=== PATIENT | male | born 1950 | race Caucasian/White ===

== ENCOUNTER 2020-07-06 10:06 | Outpatient (REF) | payer MEDICARE, SELFPAY | END 2020-07-06 10:07 | disposition home or self-care (01) | LOC: HO.BBR 10:06 | PROVIDERS: Visit Provider Internal Medicine | DX: E83.110 Hereditary hemochromatosis (principal) | CPT/HCPCS: 36415; 85018; 99195 ==

== ENCOUNTER 2021-01-03 13:55 | Outpatient (REF) | payer MEDICARE, SELFPAY | END 2021-01-03 13:56 | disposition home or self-care (01) | LOC: HO.BBR 13:55 | PROVIDERS: Visit Provider Internal Medicine | DX: Z13.89 Encounter for screening for other disorder (principal) ==

== ENCOUNTER 2021-07-12 11:02 | Outpatient (REF) | payer MEDICARE, SELFPAY | END 2021-07-12 11:03 | disposition home or self-care (01) | LOC: HO.BBR 11:02 | PROVIDERS: PCP Pediatrics; Visit Provider Internal Medicine | DX: Z13.89 Encounter for screening for other disorder (principal) ==

== ENCOUNTER 2021-12-22 10:02 | Outpatient (REF) | payer MEDICARE, SELFPAY | END 2021-12-22 10:03 | disposition home or self-care (01) | LOC: HO.BBR 10:02 | PROVIDERS: Visit Provider Internal Medicine | DX: Z13.89 Encounter for screening for other disorder (principal) ==

== ENCOUNTER 2021-12-29 10:04 | Outpatient (REF) | payer MEDICARE, SELFPAY | END 2021-12-29 10:05 | disposition home or self-care (01) | LOC: HO.BBR 10:04 | PROVIDERS: Visit Provider Internal Medicine | DX: Z13.89 Encounter for screening for other disorder (principal) ==

== ENCOUNTER 2022-06-14 13:50 | Outpatient (REF) | payer MEDICARE, SELFPAY ==
[2022-06-14 14:28] LABS: MANUAL DIFF FLAG NO
[2022-06-14 14:39] LABS: Basophils Absolute Auto 0.1 X10*3/uL (0.0-0.2); Basophils Percent Auto 1.1 % (0-2); Eosinophils Absolute Auto 0.3 X10*3/uL (0.0-0.4); Eosinophils Percent Auto 5.1 % (0-4); Hematocrit 39.8 % (42.0-52.0); Hemoglobin 13.6 g/dl (14.0-18.0); Imm Gran Abs Auto 0.02 X10*3/uL (0.00-0.03); Imm Gran Pct Auto 0.3 % (0.0-0.4); Lymphocytes Absolute Auto 1.1 X10*3/uL (1.2-4.9); Lymphocytes Percent Auto 17.2 % (20-40); Mean Corpuscular HGB Conc 34.2 g/dl (31.0-36.0); Mean Corpuscular Hemoglobin 32.1 pg (27.0-33.0); Mean Corpuscular Volume 93.9 fL (80.0-98.0); Mean Platelet Volume 10.4 fL (9.4-12.4); Monocytes Absolute Auto 0.5 X10*3/uL (0.1-1.2); Monocytes Percent Auto 7.8 % (2-11); Neutrophils Absolute Auto 4.5 x10*3/uL (2.0-8.3); Neutrophils Percent Auto 68.5 % (45-73); Platelet Count 243 X10*3/uL (160-400); Red Blood Count 4.24 X10*6/uL (4.60-5.80); Red Cell Distribution Width 13.2 % (11.0-16.0); White Blood Count 6.5 X10*3/uL (4.8-10.8)
[2022-06-14 15:33] LABS: Alanine Aminotransferase 23 U/L (0-40); Albumin Level 4.2 g/dL (3.5-5.0); Alkaline Phosphatase 59 U/L (39-117); Aspartate Amino Transferase 23 U/L (5-37); Bilirubin Direct 0.2 mg/dL (0.0-0.5); Bilirubin Total 0.7 mg/dL (0.0-1.0); Ferritin 102 ng/mL (20-250); Iron 123 mcg/dL (45-160); Percent Iron Saturation 50 % (15-50); Total Iron Binding Capacity 244 mcg/dL (228-428); Total Protein 6.6 g/dL (6.5-8.0); Unsaturated Iron Binding 121 ug/dL
== END 2022-06-14 13:51 | disposition home or self-care (01) ==
LOC: HO.BBR 13:50
PROVIDERS: Visit Provider Internal Medicine
DX: E83.110 Hereditary hemochromatosis (principal)
CPT/HCPCS: 36415; 80076; 82728; 83540; 85025

== ENCOUNTER 2022-11-16 09:42 | Outpatient (REF) | payer MEDICARE, SELFPAY | END 2022-11-16 09:43 | disposition home or self-care (01) | LOC: HO.BBR 09:42 | PROVIDERS: Visit Provider Internal Medicine | DX: Z13.89 Encounter for screening for other disorder (principal) ==

== ENCOUNTER 2023-05-17 09:57 | Outpatient (REF) | payer MEDICARE, SELFPAY | END 2023-05-17 09:58 | disposition home or self-care (01) | LOC: HO.BBR 09:57 | PROVIDERS: Visit Provider Internal Medicine | DX: Z13.89 Encounter for screening for other disorder (principal) ==

== ENCOUNTER 2023-11-22 10:56 | Outpatient (REF) | payer MEDICARE, SELFPAY | END 2023-11-22 10:57 | disposition home or self-care (01) | LOC: HO.BBR 10:56 | PROVIDERS: PCP Pediatrics; Visit Provider Internal Medicine | DX: Z13.89 Encounter for screening for other disorder (principal) ==

== ENCOUNTER 2024-11-06 10:01 | Outpatient (REF) | payer MEDICARE, SELFPAY ==
--- OUTSIDE RECORDS SUMMARY | 2024-11-06 11:37 | XMS_ITS | Clinical Summary ---
Author Organization [facility] Address [address] [place] [id number] Care Team Providers Care Lab Scientist Name Role Phone Amando Tong MD Primary Care Provider [phone] Allergies No known active allergies Medications Medication Sig Dispensed Refills Start Date End Date Status Fmdbwmitcvf-Ejbuwztym-Ysk C-Mn (GLUCOSAMINE 1500 COMPLEX) CAPS Take by mouth. 0 Active Multiple Vitamin (MULTI-VITAMIN DAILY PO) Take by mouth. 0 Active Active Problems No known active problems Social History Tobacco Use Types Packs/Day Years Used Date Smoking Tobacco: Former Smokeless Tobacco: Never Alcohol Use Standard Drinks/Week Comments Yes 0 (1 standard drink = 0.6 oz pur e alcohol) weekends Sex and Gender Information Value Date Recorded Sex Assigned at Not on file Gender Identity Not on file Sexual Orientation Not on file Job Start Date Occupation Industry Not on file Not on file Not on file Last Filed Vital Signs Vital Sign Reading Time Taken Comments Blood Pressure 137/68 01/10/2024 11:52 AM EDT Pulse 66 01/10/2024 11:52 AM EDT Temperature 36.8 ??C (98.2 ??F) 01/10/2024 11:52 AM E DT Respiratory Rate - - Oxygen Saturation 99% 01/10/2024 11:52 AM EDT Inhaled Oxygen Concentration - - Weight 91.6 kg (202 lb) 01/10/2024 11:52 AM EDT Height 182.9 cm (6') 01/10/2024 11:52 AM EDT Body Mass Index 27.4 01/10/2024 11:52 AM EDT Plan of Treatment Health Maintenance Due Date Last Done Comments Hepatitis C Screening 1950 COVID-19 Vaccine (#1) 03/13/1951 Depression Screening 1960 Preventative Health Evaluation 1966 Shingrix-Zoster Vaccine (1 of 2) 1998 Fall Risk Assessment 2013 RSV Adult > 60+ Yrs or (1 - 1-dose 75+ series) 2023 Influenza Vaccine (#1) 2024 8, 05/12/2017, 05/05/2013, Additional history exists DTap / Tdap / Td (4 - Td or Tdap) 10/27/2026 10/27/2016, 11/24/2000, 04/29/1992 Pneumococcal Vaccine Completed 11/01/2015, 08/04/2014, 08/13/2008 Hepatitis B Vaccines Aged Out No long er eligible based on patient's age to complete this topic RSV Ped < 20 months Aged Out No longe r eligible based on patient's age to complete this topic Care Teams Lab Scientist Relationship Specialty Start Date End Date Amando Tong MD [address] [facility] [address] [place] [address] PCP - General Internal Medicine 04/07/20
--- OUTSIDE RECORDS SUMMARY | 2024-11-06 11:37 | XMS_ITS | Clinical Summary ---
Author Organization [facility] Address [address] [place] [address] Phone Care Team Providers Care Hogshead Dumper Name Role Phone Ana Kaba MD Primary Care Provider Allergies No known active allergies Medications glucosamine/ch ondroitin/C/Ma ng (GLUCOSAMINE 1500 COMPLEX ORAL) Take by mouth. Activ e DAILY MULTI-VITAMIN ORAL Take by mouth. Activ e diphenhydrAMIN E-acetaminophe n (TYLENOL PM) 25-500 mg per tablet Take 1 tablet by mouth at bedtime as needed. Active ibuprofen (ADVIL,MOTRIN) 200 mg tablet Take by mouth every 6 (six) hours if needed. Active celecoxib (CeleBREX) 200 mg capsule Take 1 capsule (200 mg total) by mouth 1 (one) time each day. Active aspirin 81 mg capsule Take 81 mg by mouth 1 (one) time each day. 5 Active fluoride, sodium, 1.1 % paste if needed. 5 Active polyethylene glycol (Golytely) 236-22.74-6.74 -5.86 gram solution Take 4L by mouth once for one dose. May substitue any PEG. Starting at 6PM the night before your procedure drink 1 8oz glasses at your own pace until you complete half of the gallon. Finish 2nd half of the gallon 5 hours before your procedure. 4000 mL 5 025 Discontin ued(Thera py completed ) bisacodyL (DULCOLAX) 5 mg EC tablet Take 2 tablets by mouth right before beginning bowel prep. See instructions provided by the office 2 tablet 5 025 Discontin ued(Thera py completed ) Active Problems Problem Noted Date Diagnosed Date Medicare annual wellness visit, subsequent 10/30 Renal cyst 10/30/2024 Primary insomnia 10/30/2024 History of total left hip replacement 10/30/2024 Encounters Date Type Department Care Team Description 10/30/2024 2:30 PM EDT [facility] [address] [place] [address] Keisha Schilling NP Medicare annual wellness visit, subsequent (Primary Dx); Renal cyst; Primary insomnia; History of total left hip replacement 08/21/2024 11:07 AM EST Anesthesia Event [facility] End[facility] [address] [place] [address] Aj Demarco DO 08/21/2024 9:40 AM EST - 08/21/2024 11:59 PM EST Hospital Encounter [facility] End[facility] [address] [place] [address] Tesha Taylor MD Dasilva, Cayetano Ferreira MD Personal history of colon polyps, unspecified Discharge Disposition: Home or Self Care from Last 3 Months Surgical History Surgery Date Site/Laterality Comments THYROID SURGERY PROCEDURE:THYROID SURGERY COLONOSCOPY PROCEDURE:COLONOSCOPY Medical History Medical History Date Comments Iron overload DX:Iron overload Basal cell carcinoma DX:Basal ce ll carcinoma Social History Tobacco Use Types Packs/Day Years Used Date Smoking Tobacco: Former Cigarettes 1 26.3 S tarted: 1998 Smokeless Tobacco: Never Tobacco Cessation:Counseling Given: Not Answered Alcohol Use Standard Drinks/Week Comments Yes 0 (1 standard drink = 0.6 oz pur e alcohol) weekends Interpersonal Safety Answer Date Record ed Physical Abuse 08/21/2024 Verbal Abuse 08/21/2024 Sex and Gender Information Value Date Recorded Sex Assigned at Male 08/13/2024 12:47 PM EST Legal Sex Male 11:36 AM EST Gender Identity Male 08/13/2024 12:47 PM EST Sexual Orientation Not on file Obstetrics History Last Filed Vital Signs Vital Sign Reading Time Taken Comments Blood Pressure 118/64 10/30/2024 2:38 PM EDT Pulse 72 10/30/2024 2:38 PM EDT Temperature 36.8 ??C (98.2 ??F) 10/30/2024 2:38 PM ED T Respiratory Rate 16 08/21/2024 11:49 AM EST Oxygen Saturation 98% 08/21/2024 11:49 AM EST Inhaled Oxygen Concentration - - Weight 91.2 kg (201 lb) 10/30/2024 2:38 PM EDT Height 182.9 cm (6') 10/30/2024 2:38 PM EDT Body Mass Index 27.26 10/30/2024 2:38 PM EDT Plan of Treatment Upcoming Encounters Date Type Department Care Team (Late st Contact Info) Description 12/02/2024 2:30 PM EDT Office Visit Adult Medicine - [place] [address] [place] [address] Ana Kaba MD [address] [place] [address] 01/01/2025 11:45 AM EDT Office Visit [facility] Hematology Oncology [address] [place] [phone] Danette Franco MD [address] [place] [address] Health Maintenance Due Date Last Done Comments Zoster Vaccines (2 of 3) 08/29/2013 07/04/2013 Hepatitis C Screening 07/07/2022 Social Influencers of Health Screening 07/07/2022 RSV Immunization Adult Patients (1 - 1-dose 75+ series) 2023 COVID-19 Vaccine ( season) 2024 06/02/2021, 10/26/2020, 10/05/2020 Depression Screening 10/30/2025 10/30/2024 Falls Risk Assessment 10/30/2025 10/30/2024, 025 Medicare Annual Wellness Visit 10/30/2025 10/30/2024 DTaP,Tdap,and Td Vaccines (5 - Td or Tdap) 10/27/2026 10/27/2016, 06/30/2011, 11/24/2000, Additional history exists Colorectal Cancer Screening: Colonoscopy 08/21/2029 08/21/2024 Cholesterol Screening (Lipid Panel) 10/13/2029 10/13/2024 MMR Vaccines Aged Out 06/24/2012 No longer eligi ble based on patient's age to complete this topic Pneumococcal Vaccine: 50+ Years Completed 11/01/2015, 08/04/2014, 08/13/2008 Influenza Vaccine Completed 05/15/2024, , 05/03/2022, Additional history exists HIB Vaccines Aged Out No longer eligi ble based on patient's age to complete this topic HPV Vaccines Aged Out No longer eligi ble based on patient's age to complete this topic Hepatitis A Vaccines Aged Out No long er eligible based on patient's age to complete this topic Hepatitis B Vaccines Aged Out No long er eligible based on patient's age to complete this topic IPV Vaccines Aged Out No longer eligi ble based on patient's age to complete this topic Meningococcal ACWY Vaccine Aged Out N o longer eligible based on patient's age to complete this topic Meningococcal B Vaccine Aged Out No l onger eligible based on patient's age to complete this topic RSV Immunization Patients Under 20 months Aged Out No longer eligible based on patient's age to complete this topic Varicella Vaccines Aged Out No longer eligible based on patient's age to complete this topic Procedures Procedure Name Priority Date/Time Associated Diagnosis Comments CBC WITH AUTO DIFFERENTIAL Routine 10/13/2024 1:39 PM EDT Mass, scrotum CBC AND DIFFERENTIAL Routine 10/13/2024 1:39 PM EDT Mass, scrotum LIPID PANEL WITH REFLEX TO DIRECT LDL Routine 10/13/2024 1:39 PM EDT Screening, lipid COMPREHENSIVE METABOLIC PANEL Routine 10/13/2024 1:39 PM EDT Screening for diabetes mellitus COLONOSCOPY Routine 08/21/2024 11:28 AM EST Personal history of colon polyps, unspecified TISSUE EXAM Routine 08/21/2024 11:19 AM EST Personal history of colon polyps, unspecified from Last 3 Months Results * (ABNORMAL) Lipid panel with reflex to direct LDL (10/13/2024 1:39 PM EDT) Cholesterol 184 0 - 200 mg/dL LAB CHEMISTRY METHOD 10/13/2024 6:05 PM EDT [facility] Triglycerides 100 0 - 150 mg/dL LAB CHEMISTRY METHOD 10/13/2024 6:05 PM EDT [facility] HDL 59 >=40 mg/dL LAB CHEMISTRY METHOD 10/13/2024 6:05 PM EDT [facility] LDL Calculated 105(H) 0 - 100 mg/dL LAB CHEMISTRY METHOD 10/13/2024 6:05 PM EDT [facility] VLDL Cholesterol Yovani 20 mg/dL LAB CHEMISTRY METHOD 10/13/2024 6:05 PM EDT [facility] Non HDL Chol. (LDL+VLDL) 125 <145 mg/dL LAB CHEMISTRY METHOD 10/13/2024 6:05 PM EDT [facility] Chol/HDL Ratio 3.1 0.0 - 4.4 LAB CHEMISTRY METHOD 10/13/2024 6:05 PM EDT [facility] Blood Venous blood specimen / Unknown Venipuncture / Unknown 10/13/2024 1:39 PM EDT 10/13/2024 1:39 PM EDT us C Armin Kaba MD LAB BLOOD ORDERABLES Final Res ult [facility] [address] [place] [address], * (ABNORMAL) CBC auto differential (10/13/2024 1:39 PM EDT) Pathologist [facility] WBC 9.5 4.8 - 10.8 K/mcL LAB HEMETOLOGY METHOD 10/13/2024 5:53 PM EDT [facility] RBC 4.20(L) 4.50 - 5.50 M/mcL LAB HEMETOLOGY METHOD 10/13/2024 5:53 PM EDT [facility] Hemoglobin 13.3(L) 13.5 - 17.5 g/dL LAB HEMETOLOGY METHOD 10/13[facility]24 [facility] Hematocrit 41.2(L) 42.0 - 54.0 % LAB HEMETOLOGY METHOD 10/13/2024 5:[facility] MCV 99.3(H) 79.0 - 98.0 FL LAB HEMETOLOGY METHOD 10/13/2024 5:53 PM EDT [facility] MCH 32.0 27.0 - 32.0 pcg LAB HEMETOLOGY METHOD 10/13/2024 5:[facility] MCHC 32.3 32.0 - 37.0 g/dL LAB HEMETOLOGY METHOD 10/13/2024 5:53 PM [facility] RDW 13.7 11.0 - 15.0 % LAB HEMETOLOGY METHOD 10/13/2024 5:53 [facility] Platelets 292 130 - 400 K/mcL LAB HEMETOLOGY METHOD 10/13/2024 5:53 PM [facility] MPV 11.0 7.0 - 11.0 FL LAB HEMETOLOGY METHOD 10/13/2024 5:53 [facility] NRBC 0.0 <1.0 % LAB HEMETOLOGY METHOD 10/13/2024 5:53 [facility] NRBC Absolute 0.00 <0.10 K/mcL LAB HEMETOLOGY METHOD 10/13/2024 5:53 [facility] Neutrophils Relative 81.5 % LAB HEMETOLOGY METHOD 10/13/2024 5:53 [facility] Lymphocytes Relative 9.5 % LAB HEMETOLOGY METHOD 10/13/2024 5:53 PM EDT [facility] Monocytes Relative 6.8 % LAB HEMETOLOGY METHOD 10/13/2024 5:53 PM EDT [facility] Eosinophils Relative 1.1 % LAB HEMETOLOGY METHOD 10/13/2024 5:53 PM EDT [facility] Basophils Relative 0.7 % LAB HEMETOLOGY METHOD 10/13/2024 5:53 PM EDT [facility] Immature Granulocytes Relative 0.4 % LAB HEMETOLOGY METHOD 10/13/2024 5:53 PM EDT [facility] Neutrophils Absolute 7.73(H) 1.50 - 7.00 K/mcL LAB HEMETOLOGY METHOD 10/13/2024 5:53 PM EDT [facility] Lymphocytes Absolute 0.90(L) 1.00 - 5.00 K/mcL LAB HEMETOLOGY METHOD 10/13/2024 5:53 PM EDT [facility] Monocytes Absolute 0.65 0.20 - 1.00 K/mcL LAB HEMETOLOGY METHOD 10/13/2024 5:53 PM EDT [facility] Eosinophils Absolute 0.10 0.00 - 0.50 K/mcL LAB HEMETOLOGY METHOD 10/13/2024 5:53 PM EDT [facility] Basophils Absolute 0.07 0.00 - 0.20 K/mcL LAB HEMETOLOGY METHOD 10/13/2024 5:53 PM EDT [facility] Immature Granulocytes Absolute 0.04(H) 0.00 - 0.03 K/mcL LAB HEMETOLOGY METHOD 10/13/2024 5:53 PM EDT [facility] Blood Venous blood specimen / Unknown Venipuncture / Unknown 10/13/2024 1:39 PM EDT 10/13/2024 1:39 PM EDT us C Armin Kaba MD LAB BLOOD ORDERABLES Final Res ult [facility] [address] [place] [address], [place] [phone] * Comprehensive metabolic panel (10/13/2024 1:39 PM EDT) Sodium 139 133 - 145 mmol/L LAB CHEMISTRY METHOD 10/13/2024 6:05 PM EDT [facility] Potassium 4.6 3.5 - 5.5 mmol/L LAB CHEMISTRY METHOD 10/13/2024 6:05 PM [facility] Chloride 106 96 - 110 mmol/L LAB CHEMISTRY METHOD 10/13/2024 6:05 PM [facility] CO2 23 21 - 32 mmol/L LAB CHEMISTRY METHOD 10/13/2024 6:05 PM [facility] Anion Gap 10 3 - 11 LAB CHEMISTRY METHOD 10/13/2024 6:05 PM [facility] Glucose 96 70 - 100 mg/dL LAB CHEMISTRY METHOD 10/13/2024 6:05 PM [facility] BUN 16 5 - 25 mg/dL LAB CHEMISTRY METHOD 10/13/2024 6:05 PM [facility] Creatinine 1.12 0.70 - 1.30 mg/dL LAB CHEMISTRY METHOD 10/13/2024 6:05 PM [facility] eGFR 68 >=60 mL/min/1. 73m2 LAB CHEMISTRY METHOD 10/13/2024 6:05 PM [facility] Comment:Calculation based on the??Chronic Kidney Disease Epidemiology Collaboration (CKD-EPI) equation refit??without adjustment for race. BUN/Creatinine Ratio 14.3 LAB CHEMISTRY METHOD 10/13/2024 6:05 PM [facility] Calcium 9.9 8.5 - 10.5 mg/dL LAB CHEMISTRY METHOD 10/13/2024 6:05 PM [facility] AST (SGOT) 19 10 - 42 unit/L LAB CHEMISTRY METHOD 10/13/2024 6:05 PM EDT [facility] ALT (SGPT) 19 10 - 60 unit/L LAB CHEMISTRY METHOD 10/13/2024 6:05 PM EDT [facility] Alkaline Phosphatase 113 42 - 121 unit/L LAB CHEMISTRY METHOD 10/13/2024 6:05 PM EDT [facility] Total Protein 7.3 6.0 - 8.0 g/dL LAB CHEMISTRY METHOD 10/13/2024 6:05 PM EDT [facility] Albumin 4.1 3.2 - 5.0 g/dL LAB CHEMISTRY METHOD 10/13/2024 6:05 PM EDT [facility] Total Bilirubin 0.9 0.0 - 1.4 mg/dL LAB CHEMISTRY METHOD 10/13/2024 6:05 PM EDT [facility] Blood Venous blood specimen / Unknown Venipuncture / Unknown 10/13/2024 1:39 PM EDT 10/13/2024 1:39 PM EDT [facility] Armin Kaba MD LAB BLOOD ORDERABLES Final Res ult [facility] [address] [place] [address], * COLONOSCOPY [place] [facility] ENDOSCOPY (08/21/2024 11:28 AM EST) Anatomical Region Laterality Modality Endoscopy 08/21/2024 11:0 8 AM EST Impressions 08/21/2024 11:28 AM EST - Two diminutive polyps in the ascending colon, ? removed with a cold snare. Complete resection. Partial ? retrieval. ? - Diverticulosis in the sigmoid colon and in the ? descending colon. ? - Internal hemorrhoids. ? - The examination was otherwise normal. Recommendation: ?- Discharge patient to home. ? - Await pathology results. ? - No repeat colonoscopy due to current age (66 years ? or older). Narrative 08/21/2024 11:28 AM EST [facility] GI Patient Name: Cayetano Francois Procedure Date: 08/21/2024 11:08 AM Date of : 1950 Age: 73 Gender: Male Note Status: Finalized Attending MD: Tesha Taylor MD, Procedure Date No Time: 08/21/2024 Procedure: ? Colonoscopy Indications: ? High risk colon cancer surveillance: Personal history ? of colonic polyps, Last colonoscopy: July 2019 Providers: ? Tesha Taylor MD Referring MD: ?Tesha Taylor MD Medicines: ? Monitored Anesthesia Care Complications: ? No immediate complications. Estimated blood loss: ? Minimal. Estimated Blood Loss: ? Estimated blood loss was minimal. Procedure: ? Pre-Anesthesia Assessment: ? - Prior to the procedure, a History and Physical was ? performed, and patient medications and allergies were ? reviewed. The patient is competent. The risks and ? benefits of the procedure and the sedation options and ? risks were discussed with the patient. All questions ? were answered and informed consent was obtained. ? Patient identification and proposed procedure were ? verified by the physician, the nurse, the assistant director of admissions ? and the claims technician in the pre-procedure area in the ? endoscopy suite. Mental Status Examination: alert and ? oriented. Airway Examination: normal oropharyngeal ? airway and neck mobility. Respiratory Examination: ? clear to auscultation. CV Examination: normal. ? Prophylactic Antibiotics: The patient does not require ? prophylactic antibiotics. Prior Anticoagulants: The ? patient has taken no anticoagulant or antiplatelet ? agents. ASA Grade Assessment: II - A patient with mild ? systemic disease. After reviewing the risks and ? benefits, the patient was deemed in satisfactory ? condition to undergo the procedure. The anesthesia ? plan was to use monitored anesthesia care (MAC). ? Immediately prior to administration of medications, ? the patient was re-assessed for adequacy to receive ? sedatives. The heart rate, respiratory rate, oxygen ? saturations, blood pressure, adequacy of pulmonary ? ventilation, and response to care were monitored ? throughout the procedure. The physical status of the ? patient was re-assessed after the procedure. ? After I obtained informed consent, the scope was ? passed under direct vision. Throughout the procedure, ? the patient's blood pressure, pulse, and oxygen ? saturations were monitored continuously. The Olympus ? Colonoscope was introduced through the anus and ? advanced to the cecum, identified by appendiceal ? orifice and ileocecal valve. The colonoscopy was ? performed without difficulty. The patient tolerated ? the procedure well. The quality of the bowel ? preparation was good. Findings: ?The perianal and digital rectal examinations were ? normal. ? Two sessile polyps were found in the ascending colon. ? The polyps were diminutive in size. These polyps were ? removed with a cold snare. Resection was complete, but ? the polyp tissue was only partially retrieved. ? Estimated blood loss was minimal. ? Many small and large-mouthed diverticula were found in ? the sigmoid colon and descending colon. ? Internal hemorrhoids were found during retroflexion. ? The hemorrhoids were Grade I (internal hemorrhoids ? that do not prolapse). ? The exam was otherwise without abnormality. Procedure Code(s): ? --- Professional --- ? 98760, Colonoscopy, flexible; with removal of ? tumor(s), polyp(s), or other lesion(s) by snare ? technique Diagnosis Code(s): ? --- Professional --- ? D12.2, Benign neoplasm of ascending colon CPT copyright 2020 [employer]. All rights reserved. The codes documented in this report are preliminary and upon clinical lab clerk review may be revised to meet current compliance requirements. Tesha Taylor MD 08/21/2024 11:28:55 AM This report has been signed electronically.Tesha Taylor MD Number of Addenda: 0 Note Initiated On: 08/21/2024 11:08 AM Scope Withdrawal Time: 0 hours 8 minutes 17 seconds Scope In: 11:13:39 AM Scope Out: 11:26:34 AM ? Endoscopy Department at [facility] - [address] [place] [address], ? [place] [address] Procedure Note Tesha Taylor MD - 08/21/2024 [facility] GI Patient Name: Cayetano Francois Procedure Date: 08/21/2024 11:08 AM Date of : 1950 Age: 73 Gender: Male Note Status: Finalized Attending MD: Tesha Taylor MD, Procedure Date No Time: 08/21/2024 Procedure: Colonoscopy Indications: High risk colon cancer surveillance: Personalhistory of colonic polyps, Last colonoscopy: July 2019 Providers: Tesha Taylor MD Referring MD: Tesha Taylor MD Medicines: Monitored Anesthesia Care Complications: No immediate complications. Estimated blood loss: Minimal. Estimated Blood Loss: Estimated blood loss was minimal. Procedure: Pre-Anesthesia Assessment: - Prior to the procedure, a History and Physicalwas performed, and patient medications and allergieswere reviewed. The patient is competent. The risks and benefits of the procedure and the sedation optionsand risks were discussed with the patient. Allquestions were answered and informed consent was obtained. Patient identification and proposed procedure were verified by the physician, the nurse, theanesthetist and the claims technician in the pre-procedure area in the endoscopy suite. Mental Status Examination: alertand oriented. Airway Examination: normal oropharyngeal airway and neck mobility. Respiratory Examination: clear to auscultation. CV Examination: normal. Prophylactic Antibiotics: The patient does notrequire prophylactic antibiotics. Prior Anticoagulants: The patient has taken no anticoagulant or antiplatelet agents. ASA Grade Assessment: II - A patient withmild systemic disease. After reviewing the risks and benefits, the patient was deemed in satisfactory condition to undergo the procedure. The anesthesia plan was to use monitored anesthesia care (MAC). Immediately prior to administration of medications, the patient was re-assessed for adequacy to receive sedatives. The heart rate, respiratory rate, oxygen saturations, blood pressure, adequacy of pulmonary ventilation, and response to care were monitored throughout the procedure. The physical status ofthe patient was re-assessed after the procedure. After I obtained informed consent, the scope was passed under direct vision. Throughout theprocedure, the patient's blood pressure, pulse, and oxygen saturations were monitored continuously. TheOlympus Colonoscope was introduced through the anus and advanced to the cecum, identified by appendiceal orifice and ileocecal valve. The colonoscopy was performed without difficulty. The patient tolerated the procedure well. The quality of the bowel preparation was good. Findings: The perianal and digital rectal examinations were normal. Two sessile polyps were found in the ascendingcolon. The polyps were diminutive in size. These polypswere removed with a cold snare. Resection was complete,but the polyp tissue was only partially retrieved. Estimated blood loss was minimal. Many small and large-mouthed diverticula were foundin the sigmoid colon and descending colon. Internal hemorrhoids were found duringretroflexion. The hemorrhoids were Grade I (internal hemorrhoids that do not prolapse). The exam was otherwise without abnormality. Procedure Code(s): --- Professional --- 39351, Colonoscopy, flexible; with removal of tumor(s), polyp(s), or other lesion(s) by snare technique Diagnosis Code(s): --- Professional --- D12.2, Benign neoplasm of ascending colon CPT copyright 2020 [employer]. All rights reserved. The codes documented in this report are preliminary and upon clinical lab clerk reviewmay be revised to meet current compliance requirements. Tesha Taylor MD 08/21/2024 11:28:55 AM This report has been signed electronically.Tesha Taylor MD Number of Addenda: 0 Note Initiated On: 08/21/2024 11:08 AM Scope Withdrawal Time: 0 hours 8 minutes 17 seconds Scope In: 11:13:39 AM Scope Out: 11:26:34 AM Endoscopy Department at [facility] - [address] [place] [id number] IMPRESSION: - Two diminutive polyps in the ascending colon, removed with a cold snare. Complete resection.Partial retrieval. - Diverticulosis in the sigmoid colon and in the descending colon. - Internal hemorrhoids. - The examination was otherwise normal. Recommendation: - Discharge patient to home. - Await pathology results. - No repeat colonoscopy due to current age (66years or older). us Tesha Taylor MD GI~PROCEDURE ORDERABLES Fin al Result * Tissue exam (08/21/2024 11:19 AM EST) Final Diagnosis Ascending Colon, polyp x1: Sessile serrated lesion. 08/22/2024 11:46 AM EST [facility] Gross Description A. Large Intestine, Right/Ascending Colon, polyp x1: Labeled ascend colon polyp x 1 . Received in formalin, is an approximately 0.9 cm, in greatest diameters, soft, mcgee-pink, mucosal polypoid tissue, which is inked black at the base, wrapped in paper and submitted in toto in one cassette, one piece, multiple levels. dvb/DG 08/22/2024 11:46 AM EST [facility] Disclaimer Unless otherwise specified, all tissue is 10% NB formalin fixed and paraffin embedded. 08/22/2024 11:46 AM EST [facility] Tissue Ascending colon structure / Unknown 08/21/2024 11:19 AM EST 08/21/2024 12:53 PM EST us Tesha Taylor MD LAB PATHOLOGY ORDERABLES Fi nal Result [facility] [address] [place] [address], from Last 3 Months Insurance [employer] Care Teams Hogshead Dumper Relationship Specialty Start Date End Date Ana Kaba MD [address] [place] [id number] PCP - General Internal Medicine 07/01/24
== END 2024-11-06 10:02 | disposition home or self-care (01) ==
LOC: HO.BBR 10:01
PROVIDERS: PCP Pediatrics; Visit Provider Internal Medicine
DX: Z13.89 Encounter for screening for other disorder (principal)